=== PATIENT | male | born 1965 | race American Indian/Alaskan Native ===

== ENCOUNTER 2016-05-10 23:18 | Inpatient (IN) | payer OTHER ==
--- NOTE | 2016-05-10 23:53 | Emergency Department Report ---
ED General Adult HPI - General Chief complaint: Altered Mental Status Stated complaint: FALL/HEAD INJURY Time Seen by Provider: 05/10/16 23:50 Source: family (friends), RN notes reviewed Mode of arrival: Wheelchair Limitations: Altered Mental Status, Physical Limitation - History of Present Illness Initial comments: This is a 50-year-old male. He is previously unknown to me. Has a past medical history of alcohol abuse. Brought to the hospital by 2 friends. As per friends, patient is altered. He is not acting like his normal self and slurring speech. they do not know when patient was last seen normal. Patient has a known history of alcohol abuse. The patient's friends report that the patient was noted to be consuming alcohol today, there may have been trauma, he has bilateral periorbital ecchymoses. They report that the patient was able to walk with them before getting to the emergency room. -: Gradual Consistency: constant Improves with: none Worsens with: none Associated Symptoms: confusion - Related Data Previous Rx's Medication Instructions Recorded Last Taken Type Folic Acid [Folvite] 1 mg PO QDAY #30 tablet 05/14/16 Unknown Rx Thiamine [Vitamin B-1] 100 mg PO DAILY #30 tablet 05/14/16 Unknown Rx chlordiazePOXIDE [Librium] 5 mg PO Q12H PRN #6 capsule 05/14/16 Unknown Rx Allergies Allergy/AdvReac Type Severity Reaction Status Date / Time No Known Allergies Allergy Verified 05/11/16 02:53 ED Review of Systems ROS: Stated complaint: FALL/HEAD INJURY Other details as noted in HPI Comment: Unobtainable due to pts medical conditions Constitutional: see HPI ED Past Medical Hx - Past Medical History Previous Medical History?: No - Surgical History Past Surgical History?: No - Medications Home Medications: Home Medications Medication Instructions Recorded Confirmed Last Taken Type Folic Acid [Folvite] 1 mg PO QDAY #30 tablet 05/14/16 Unknown Rx Thiamine [Vitamin B-1] 100 mg PO DAILY #30 tablet 05/14/16 Unknown Rx chlordiazePOXIDE [Librium] 5 mg PO Q12H PRN #6 capsule 05/14/16 Unknown Rx ED Physical Exam - General Limitations: Altered Mental Status, Physical Limitation General appearance: obtunded - Head Head exam: Present: atraumatic, normocephalic - Eye Eye exam: Present: other (patient initially would not open eyes, however after a period of observation eyes were open spontaneously, and they would react to light bilaterally.). Absent: normal appearance (bilateral periorbital ecchymosis noted) - ENT ENT exam: Present: normal exam, normal orophraynx, mucous membranes moist - Neck Neck exam: Present: normal inspection, full ROM. Absent: tenderness, meningismus - Respiratory Respiratory exam: Present: normal lung sounds bilaterally. Absent: respiratory distress, wheezes, rales, rhonchi, stridor, decreased breath sounds - Cardiovascular Cardiovascular Exam: Present: normal rhythm, tachycardia, normal heart sounds. Absent: bradycardia, systolic murmur, diastolic murmur, rubs, gallop - GI/Abdominal GI/Abdominal exam: Present: soft, normal bowel sounds. Absent: distended, tenderness, guarding, rebound, pulsatile mass - Rectal Rectal exam: Present: normal inspection, normal rectal tone, heme (+) stool - exam: Present: normal inspection. Absent: testicular tenderness External exam: Present: normal external exam - Extremities Exam Extremities exam: Present: normal inspection, normal capillary refill. Absent: tenderness, pedal edema, joint swelling, calf tenderness - Back Exam Back exam: Present: normal inspection, paraspinal tenderness, vertebral tenderness. Absent: tenderness, CVA tenderness (R) - Neurological Exam Neurological exam: Present: altered, other (patient initially has a GCS of 3, after a period of observation, mental status improves, he is awake, follows some commands, eyes open spontaneously) - Psychiatric Psychiatric exam: Present: flat affect - Skin Skin exam: Present: warm, dry, intact, normal color, abrasion. Absent: rash ED Course Vital Signs 05/10/16 05/10/16 05/11/16 23:28 23:53 00:05 Temperature 98.8 F 98.2 F Pulse Rate 101 H 89 Respiratory 18 18 18 Rate Blood Pressure 130/89 Blood Pressure 129/87 [Right] O2 Sat by Pulse 99 97 97 Oximetry 05/11/16 05/11/16 05/11/16 00:42 02:30 04:39 Temperature 97.7 F Pulse Rate 100 H 98 H 98 H Respiratory 20 20 Rate Blood Pressure Blood Pressure 115/77 112/76 [Right] O2 Sat by Pulse 96 97 Oximetry - Reevaluation(s) Reevaluation #1: 05/11/16 01:30 Differential diagnosis: Intracranial injury, cervical spine injury, electrolyte derangement, toxic/metabolic encephalopathy, rhabdomyolysis Assessment and plan: 50-year-old male with altered mental status, most likely toxic/metabolic encephalopathy secondary to alcohol intoxication. CT scan of the cervical spine and brain are negative, patient noted to be moving 4 extremities, cervical collar discontinued. Noted to be in rhabdo, CK of 8600. Compartments are soft. Patient's mental status is improving. At this point in time, is protecting his airway, but we will have low threshold to intubate. Case is discussed with the hospital physician, Dr. Guillory, who accepts the patient to her service. ED Medical Decision Making - Lab Data Result diagrams: 05/12/16 05:44 05/12/16 05:44 Vital Signs 05/10/16 05/10/16 05/11/16 23:28 23:53 00:42 Temperature 98.8 F 98.2 F Pulse Rate 101 H 89 100 H Respiratory 18 18 20 Rate Blood Pressure 130/89 Blood Pressure 129/87 115/77 [Right] O2 Sat by Pulse 99 97 96 Oximetry Lab Results 05/10/16 05/10/16 05/10/16 Range/Units 23:56 23:56 23:56 WBC 2.4 L (4.5-11.0) K/mm3 RBC 4.01 (3.65-5.03) M/mm3 Hgb 13.0 (11.8-15.2) gm/dl Hct 39.0 (35.5-45.6) % MCV 97 H (84-94) fl MCH 32 (28-32) pg MCHC 33 (32-34) % RDW 13.2 (13.2-15.2) % Plt Count 95 L (140-440) K/mm3 Floyd % (Auto) Health Associate Add Manual Diff Complete Total Counted 100 Seg Neuts % (Manual) 62.0 (40.0-70.0) % Band Neutrophils % 0 % Lymphocytes % (Manual) 26.0 (13.4-35.0) % Reactive Lymphs % (Man) 0 % Monocytes % (Manual) 11.0 H (0.0-7.3) % Eosinophils % (Manual) 0 (0.0-4.3) % Basophils % (Manual) 0 (0.0-1.8) % Metamyelocytes % 1.0 % Myelocytes % 0 % Promyelocytes % 0 % Blast Cells % 0 % Nucleated RBC % Not Reportable Seg Neutrophils # Man 1.5 L (1.8-7.7) K/mm3 Band Neutrophils # 0.0 K/mm3 Lymphocytes # (Manual) 0.6 L (1.2-5.4) K/mm3 Abs React Lymphs (Man) 0.0 K/mm3 Monocytes # (Manual) 0.3 (0.0-0.8) K/mm3 Eosinophils # (Manual) 0.0 (0.0-0.4) K/mm3 Basophils # (Manual) 0.0 (0.0-0.1) K/mm3 Metamyelocytes # 0.0 K/mm3 Myelocytes # 0.0 K/mm3 Promyelocytes # 0.0 K/mm3 Blast Cells # 0.0 K/mm3 WBC Morphology Not Reportable Hypersegmented Neuts Not Reportable Hyposegmented Neuts Not Reportable Hypogranular Neuts Not Reportable Smudge Cells Not Reportable Toxic Granulation Not Reportable Toxic Vacuolation Not Reportable Dohle Bodies Not Reportable Pelger-Huet Anomaly Not Reportable Ruben Rods Not Reportable Platelet Estimate Consistent w auto Clumped Platelets Not Reportable Plt Clumps, EDTA Not Reportable Large Platelets Not Reportable Giant Platelets Not Reportable Platelet Satelliting Not Reportable Plt Morphology Comment Not Reportable RBC Morphology Not Reportable Dimorphic RBCs Not Reportable Polychromasia Not Reportable Hypochromasia Not Reportable Poikilocytosis Not Reportable Anisocytosis 1+ Microcytosis Not Reportable Macrocytosis Not Reportable Spherocytes Not Reportable Pappenheimer Bodies Not Reportable Sickle Cells Not Reportable Target Cells 2+ Tear Drop Cells Not Reportable Ovalocytes Not Reportable Helmet Cells Not Reportable [place] Bodies Not Reportable [place] Rings Not Reportable Uli Cells Not Reportable Bite Cells Not Reportable Crenated Cell Not Reportable Elliptocytes Not Reportable Acanthocytes (Spur) Not Reportable Rouleaux Not Reportable Hemoglobin C Crystals Not Reportable Schistocytes Not Reportable Malaria parasites Not Reportable John Bodies Not Reportable Hem Pathologist Commnt Sent to pathology Sodium 144 (137-145) mmol/L Potassium 4.1 (3.6-5.0) mmol/L Chloride 102.5 (98-107) mmol/L Carbon Dioxide 27 (22-30) mmol/L Anion Gap 19 mmol/L BUN 13 (9-20) mg/dL Creatinine 0.7 L (0.8-1.5) mg/dL Estimated GFR > 60 ml/min BUN/Creatinine Ratio 18.57 % Glucose 124 H (75-100) mg/dL Lactic Acid 2.3 H* (0.7-2.0) mmol/L Calcium 7.7 L (8.4-10.2) mg/dL Magnesium 1.9 (1.7-2.3) mg/dL Total Bilirubin 0.3 (0.1-1.2) mg/dL AST 330 H (5-40) units/L ALT 192 H (7-56) units/L Alkaline Phosphatase 92 (35-129) units/L Total Creatine Kinase (55-170) units/L Total Protein 6.4 (6.3-8.2) g/dL Albumin 3.6 L (3.9-5) g/dL Albumin/Globulin Ratio 1.3 % TSH (0.270-4.200) mlU/mL Urine Color (Yellow) Urine Turbidity (Clear) Urine pH (5.0-7.0) Ur Specific Melvin (1.003-1.030) Urine Protein (Negative) mg/dL Urine Glucose (UA) (Negative) mg/dL Urine Ketones (Negative) mg/dL Urine Blood (Negative) Urine Nitrite (Negative) Ur Reducing Substances Urine Bilirubin (Negative) Urine Ictotest Urine Urobilinogen (<2.0) mg/dL Ur Leukocyte Esterase (Negative) Urine WBC (Auto) (0.0-6.0) /HPF Urine RBC (Auto) (0.0-6.0) /HPF Hyaline Casts /LPF Urine Mucus /HPF Salicylates (2.8-20.0) mg/dL Urine Opiates Screen Urine Methadone Screen Acetaminophen (10.0-30.0) ug/mL Ur Barbiturates Screen Ur Phencyclidine Scrn Ur Amphetamines Screen U Benzodiazepines Scrn Urine Cocaine Screen U Marijuana (THC) Screen Drugs of Abuse Note Plasma/Serum Alcohol (0-0.07) gm% 05/10/16 05/10/16 05/10/16 Range/Units 23:56 23:56 23:56 WBC (4.5-11.0) K/mm3 RBC (3.65-5.03) M/mm3 Hgb (11.8-15.2) gm/dl Hct (35.5-45.6) % MCV (84-94) fl MCH (28-32) pg MCHC (32-34) % RDW (13.2-15.2) % Plt Count (140-440) K/mm3 Floyd % (Auto) Add Manual Diff Total Counted Seg Neuts % (Manual) (40.0-70.0) % Band Neutrophils % % Lymphocytes % (Manual) (13.4-35.0) % Reactive Lymphs % (Man) % Monocytes % (Manual) (0.0-7.3) % Eosinophils % (Manual) (0.0-4.3) % Basophils % (Manual) (0.0-1.8) % Metamyelocytes % % Myelocytes % % Promyelocytes % % Blast Cells % % Nucleated RBC % Seg Neutrophils # Man (1.8-7.7) K/mm3 Band Neutrophils # K/mm3 Lymphocytes # (Manual) (1.2-5.4) K/mm3 Abs React Lymphs (Man) K/mm3 Monocytes # (Manual) (0.0-0.8) K/mm3 Eosinophils # (Manual) (0.0-0.4) K/mm3 Basophils # (Manual) (0.0-0.1) K/mm3 Metamyelocytes # K/mm3 Myelocytes # K/mm3 Promyelocytes # K/mm3 Blast Cells # K/mm3 WBC Morphology Hypersegmented Neuts Hyposegmented Neuts Hypogranular Neuts Smudge Cells Toxic Granulation Toxic Vacuolation Dohle Bodies Pelger-Huet Anomaly Ruben Rods Platelet Estimate Clumped Platelets Plt Clumps, EDTA Large Platelets Giant Platelets Platelet Satelliting Plt Morphology Comment RBC Morphology Dimorphic RBCs Polychromasia Hypochromasia Poikilocytosis Anisocytosis Microcytosis Macrocytosis Spherocytes Pappenheimer Bodies Sickle Cells Target Cells Tear Drop Cells Ovalocytes Helmet Cells [place] Bodies [place] Rings Uli Cells Bite Cells Crenated Cell Elliptocytes Acanthocytes (Spur) Rouleaux Hemoglobin C Crystals Schistocytes Malaria parasites John Bodies Hem Pathologist Commnt Sodium (137-145) mmol/L Potassium (3.6-5.0) mmol/L Chloride (98-107) mmol/L Carbon Dioxide (22-30) mmol/L Anion Gap mmol/L BUN (9-20) mg/dL Creatinine (0.8-1.5) mg/dL Estimated GFR ml/min BUN/Creatinine Ratio % Glucose (75-100) mg/dL Lactic Acid (0.7-2.0) mmol/L Calcium (8.4-10.2) mg/dL Magnesium (1.7-2.3) mg/dL Total Bilirubin (0.1-1.2) mg/dL AST (5-40) units/L ALT (7-56) units/L Alkaline Phosphatase (35-129) units/L Total Creatine Kinase (55-170) units/L Total Protein (6.3-8.2) g/dL Albumin (3.9-5) g/dL Albumin/Globulin Ratio % TSH 1.380 (0.270-4.200) mlU/mL Urine Color (Yellow) Urine Turbidity (Clear) Urine pH (5.0-7.0) Ur Specific Melvin (1.003-1.030) Urine Protein (Negative) mg/dL Urine Glucose (UA) (Negative) mg/dL Urine Ketones (Negative) mg/dL Urine Blood (Negative) Urine Nitrite (Negative) Ur Reducing Substances Urine Bilirubin (Negative) Urine Ictotest Urine Urobilinogen (<2.0) mg/dL Ur Leukocyte Esterase (Negative) Urine WBC (Auto) (0.0-6.0) /HPF Urine RBC (Auto) (0.0-6.0) /HPF Hyaline Casts /LPF Urine Mucus /HPF Salicylates < 0.3 L (2.8-20.0) mg/dL Urine Opiates Screen Urine Methadone Screen Acetaminophen < 15.0 (10.0-30.0) ug/mL Ur Barbiturates Screen Ur Phencyclidine Scrn Ur Amphetamines Screen U Benzodiazepines Scrn Urine Cocaine Screen U Marijuana (THC) Screen Drugs of Abuse Note Plasma/Serum Alcohol (0-0.07) gm% 05/10/16 05/11/16 05/11/16 Range/Units 23:56 00:06 00:39 WBC (4.5-11.0) K/mm3 RBC (3.65-5.03) M/mm3 Hgb (11.8-15.2) gm/dl Hct (35.5-45.6) % MCV (84-94) fl MCH (28-32) pg MCHC (32-34) % RDW (13.2-15.2) % Plt Count (140-440) K/mm3 Floyd % (Auto) Add Manual Diff Total Counted Seg Neuts % (Manual) (40.0-70.0) % Band Neutrophils % % Lymphocytes % (Manual) (13.4-35.0) % Reactive Lymphs % (Man) % Monocytes % (Manual) (0.0-7.3) % Eosinophils % (Manual) (0.0-4.3) % Basophils % (Manual) (0.0-1.8) % Metamyelocytes % % Myelocytes % % Promyelocytes % % Blast Cells % % Nucleated RBC % Seg Neutrophils # Man (1.8-7.7) K/mm3 Band Neutrophils # K/mm3 Lymphocytes # (Manual) (1.2-5.4) K/mm3 Abs React Lymphs (Man) K/mm3 Monocytes # (Manual) (0.0-0.8) K/mm3 Eosinophils # (Manual) (0.0-0.4) K/mm3 Basophils # (Manual) (0.0-0.1) K/mm3 Metamyelocytes # K/mm3 Myelocytes # K/mm3 Promyelocytes # K/mm3 Blast Cells # K/mm3 WBC Morphology Hypersegmented Neuts Hyposegmented Neuts Hypogranular Neuts Smudge Cells Toxic Granulation Toxic Vacuolation Dohle Bodies Pelger-Huet Anomaly Ruben Rods Platelet Estimate Clumped Platelets Plt Clumps, EDTA Large Platelets Giant Platelets Platelet Satelliting Plt Morphology Comment RBC Morphology Dimorphic RBCs Polychromasia Hypochromasia Poikilocytosis Anisocytosis Microcytosis Macrocytosis Spherocytes Pappenheimer Bodies Sickle Cells Target Cells Tear Drop Cells Ovalocytes Helmet Cells [place] Bodies [place] Rings [place] Cells Bite Cells Crenated Cell Elliptocytes Acanthocytes (Spur) Rouleaux Hemoglobin C Crystals Schistocytes Malaria parasites John Bodies Hem Pathologist Commnt Sodium (137-145) mmol/L Potassium (3.6-5.0) mmol/L Chloride (98-107) mmol/L Carbon Dioxide (22-30) mmol/L Anion Gap mmol/L BUN (9-20) mg/dL Creatinine (0.8-1.5) mg/dL Estimated GFR ml/min BUN/Creatinine Ratio % Glucose (75-100) mg/dL Lactic Acid (0.7-2.0) mmol/L Calcium (8.4-10.2) mg/dL Magnesium (1.7-2.3) mg/dL Total Bilirubin (0.1-1.2) mg/dL AST (5-40) units/L ALT (7-56) units/L Alkaline Phosphatase (35-129) units/L Total Creatine Kinase 8612 H (55-170) units/L Total Protein (6.3-8.2) g/dL Albumin (3.9-5) g/dL Albumin/Globulin Ratio % TSH (0.270-4.200) mlU/mL Urine Color Yellow (Yellow) Urine Turbidity Clear (Clear) Urine pH 6.0 (5.0-7.0) Ur Specific Melvin 1.018 (1.003-1.030) Urine Protein 100 mg/dl (Negative) mg/dL Urine Glucose (UA) Neg (Negative) mg/dL Urine Ketones Neg (Negative) mg/dL Urine Blood Mod (Negative) Urine Nitrite Neg (Negative) Ur Reducing Substances Not Reportable Urine Bilirubin Neg (Negative) Urine Ictotest Not Reportable Urine Urobilinogen 4.0 (<2.0) mg/dL Ur Leukocyte Esterase Neg (Negative) Urine WBC (Auto) < 1.0 (0.0-6.0) /HPF Urine RBC (Auto) < 1.0 (0.0-6.0) /HPF Hyaline Casts 5 /LPF Urine Mucus Few /HPF Salicylates (2.8-20.0) mg/dL Urine Opiates Screen Urine Methadone Screen Acetaminophen (10.0-30.0) ug/mL Ur Barbiturates Screen Ur Phencyclidine Scrn Ur Amphetamines Screen U Benzodiazepines Scrn Urine Cocaine Screen U Marijuana (THC) Screen Drugs of Abuse Note Plasma/Serum Alcohol 0.64 H (0-0.07) gm% 05/11/16 Range/Units 00:39 WBC (4.5-11.0) K/mm3 RBC (3.65-5.03) M/mm3 Hgb (11.8-15.2) gm/dl Hct (35.5-45.6) % MCV (84-94) fl MCH (28-32) pg MCHC (32-34) % RDW (13.2-15.2) % Plt Count (140-440) K/mm3 Floyd % (Auto) Add Manual Diff Total Counted Seg Neuts % (Manual) (40.0-70.0) % Band Neutrophils % % Lymphocytes % (Manual) (13.4-35.0) % Reactive Lymphs % (Man) % Monocytes % (Manual) (0.0-7.3) % Eosinophils % (Manual) (0.0-4.3) % Basophils % (Manual) (0.0-1.8) % Metamyelocytes % % Myelocytes % % Promyelocytes % % Blast Cells % % Nucleated RBC % Seg Neutrophils # Man (1.8-7.7) K/mm3 Band Neutrophils # K/mm3 Lymphocytes # (Manual) (1.2-5.4) K/mm3 Abs React Lymphs (Man) K/mm3 Monocytes # (Manual) (0.0-0.8) K/mm3 Eosinophils # (Manual) (0.0-0.4) K/mm3 Basophils # (Manual) (0.0-0.1) K/mm3 Metamyelocytes # K/mm3 Myelocytes # K/mm3 Promyelocytes # K/mm3 Blast Cells # K/mm3 WBC Morphology Hypersegmented Neuts Hyposegmented Neuts Hypogranular Neuts Smudge Cells Toxic Granulation Toxic Vacuolation Dohle Bodies Pelger-Huet Anomaly Ruben Rods Platelet Estimate Clumped Platelets Plt Clumps, EDTA Large Platelets Giant Platelets Platelet Satelliting Plt Morphology Comment RBC Morphology Dimorphic RBCs Polychromasia Hypochromasia Poikilocytosis Anisocytosis Microcytosis Macrocytosis Spherocytes Pappenheimer Bodies Sickle Cells Target Cells Tear Drop Cells Ovalocytes Helmet Cells [place] Bodies [place] Rings [place] Cells Bite Cells Crenated Cell Elliptocytes Acanthocytes (Spur) Rouleaux Hemoglobin C Crystals Schistocytes Malaria parasites John Bodies Hem Pathologist Commnt Sodium (137-145) mmol/L Potassium (3.6-5.0) mmol/L Chloride (98-107) mmol/L Carbon Dioxide (22-30) mmol/L Anion Gap mmol/L BUN (9-20) mg/dL Creatinine (0.8-1.5) mg/dL Estimated GFR ml/min BUN/Creatinine Ratio % Glucose (75-100) mg/dL Lactic Acid (0.7-2.0) mmol/L Calcium (8.4-10.2) mg/dL Magnesium (1.7-2.3) mg/dL Total Bilirubin (0.1-1.2) mg/dL AST (5-40) units/L ALT (7-56) units/L Alkaline Phosphatase (35-129) units/L Total Creatine Kinase (55-170) units/L Total Protein (6.3-8.2) g/dL Albumin (3.9-5) g/dL Albumin/Globulin Ratio % TSH (0.270-4.200) mlU/mL Urine Color (Yellow) Urine Turbidity (Clear) Urine pH (5.0-7.0) Ur Specific Melvin (1.003-1.030) Urine Protein (Negative) mg/dL Urine Glucose (UA) (Negative) mg/dL Urine Ketones (Negative) mg/dL Urine Blood (Negative) Urine Nitrite (Negative) Ur Reducing Substances Urine Bilirubin (Negative) Urine Ictotest Urine Urobilinogen (<2.0) mg/dL Ur Leukocyte Esterase (Negative) Urine WBC (Auto) (0.0-6.0) /HPF Urine RBC (Auto) (0.0-6.0) /HPF Hyaline Casts /LPF Urine Mucus /HPF Salicylates (2.8-20.0) mg/dL Urine Opiates Screen Presumptive negative Urine Methadone Screen Presumptive negative Acetaminophen (10.0-30.0) ug/mL Ur Barbiturates Screen Presumptive negative Ur Phencyclidine Scrn Presumptive negative Ur Amphetamines Screen Presumptive negative U Benzodiazepines Scrn Presumptive negative Urine Cocaine Screen Presumptive negative U Marijuana (THC) Screen Presumptive negative Drugs of Abuse Note Disclamer Plasma/Serum Alcohol (0-0.07) gm% - EKG Data EKG shows normal: sinus rhythm, axis, intervals, QRS complexes, ST-T waves - EKG Data When compared to previous EKG there are: previous EKG unavailable - Radiology Data Radiology results: report reviewed, image reviewed xr chest and pelvis: negative ct scan of brain and c spine: negative Critical care attestation.: If time is entered above; I have spent that time in minutes in the direct care of this critically ill patient, excluding procedure time. ED Disposition Clinical Impression: Toxic encephalopathy, Rhabdomyolysis Disposition: OP ADMITTED IP TO THIS HOSP Is pt being admited?: Yes Does the pt Need Aspirin: No Condition: Fair
[2016-05-11 00:08] LABS: Mean Corpuscular HGB Conc 33 % (32-34); Mean Corpuscular Hemoglobin 32 pg (28-32); Mean Corpuscular Volume 97 fl (84-94); Red Blood Count 4.01 M/mm3 (3.65-5.03); Red Cell Distribution Width 13.2 % (13.2-15.2); White Blood Count 2.4 K/mm3 (4.5-11.0)
[2016-05-11 00:10] LABS: Platelet Count 95 K/mm3 (140-440)
[2016-05-11 00:29] LABS: Alanine Aminotransferase 192 units/L (7-56); Albumin 3.6 g/dL (3.9-5); Albumin/Globulin Ratio 1.3 %; Alkaline Phosphatase 92 units/L (35-129); Anion Gap 19 mmol/L; BUN/Creatinine Ratio 18.57; Bilirubin,Total 0.3 mg/dL (0.1-1.2); Blood Urea Nitrogen 13 mg/dL (9-20); Calcium 7.7 mg/dL (8.4-10.2); Carbon Dioxide 27 mmol/L (22-30); Chloride 102.5 mmol/L (98-107); Glucose 124 mg/dL (75-100); Magnesium 1.9 mg/dL (1.7-2.3); Potassium 4.1 mmol/L (3.6-5.0); Sodium 144 mmol/L (137-145); Total Protein 6.4 g/dL (6.3-8.2)
--- NOTE | 2016-05-11 00:39 | Cat Scan Report ---
FINAL REPORT EXAM: CT HEAD/BRAIN WO CON HISTORY: unresponsive FALL TECHNIQUE: Noncontrast serial axial images from skull base to vertex PRIORS: None. FINDINGS: There is moderate atrophy. There is no mass effect or midline shift. There are no abnormal intra or extra-axial fluid collections. Lateral ventricles are within normal limits for size and configuration. Basilar cisterns are patent. No acute intracranial hemorrhage is identified. Visualized paranasal sinuses and mastoid air cells are well aerated. No acute osseous abnormality is identified. IMPRESSION: 1. No acute intracranial hemorrhage is identified.
[2016-05-11 00:41] LABS: Urine Drugs of Abuse Note Disclamer
--- NOTE | 2016-05-11 00:41 | Cat Scan Report ---
FINAL REPORT EXAM: CT CERVICAL SPINE WO CON HISTORY: ams FALL TECHNIQUE: Noncontrast serial axial images through the cervical spine with coronal and sagittal reconstruction. PRIORS: None. FINDINGS: No gross abnormality is seen in the visualized portion of the brain. Mastoid air cells are well aerated. Prevertebral soft tissues appear within normal limits. Visualized portion of the lung apices are clear. No acute fracture or anterolisthesis is identified. Spondylosis is noted at C4-5, C5-6 and C6-7. IMPRESSION: 1. No acute fracture or anterolisthesis is identified. 2. Degenerative changes are noted.
[2016-05-11 00:45] LABS: Blastocytes % (Manual) 0 %
[2016-05-11 00:46] LABS: Basophils % (Manual) 0 % (0.0-1.8); Eosinophils % (Manual) 0 % (0.0-4.3)
[2016-05-11 00:47] LABS: Anisocytosis 1+
[2016-05-11 00:49] LABS: Platelet Estimate Consistent w Auto
[2016-05-11 00:50] LABS: Diff Status Complete
[2016-05-11 01:06] LABS: Bilirubin,Urine NEG (Negative); Blood,Urine MOD (Negative); Ketones,Urine NEG (Negative); Leukocyte Esterase,Urine NEG (Negative); Mucus,Urine FEW /HPF; Nitrite,Urine NEG (Negative); RBC,Urine < 1.0 /HPF (0.0-6.0); WBC,Urine < 1.0 /HPF (0.0-6.0)
[2016-05-11] MEDS ORDERED: NACL 0.9% 500 ML IV SCH (02:00)
[2016-05-11] MEDS ORDERED: TYLENOL PO PRN (02:43)
[2016-05-11] MEDS ORDERED: MILK OF MAGNESIA PO PRN (02:43)
[2016-05-11] MEDS ORDERED: ZOFRAN IV PRN (02:43)
[2016-05-11] MEDS ORDERED: DULCOLAX PR PRN (02:43)
--- NOTE | 2016-05-11 02:43 | History and Physical Report ---
History of Present Illness Date of examination: 05/11/16 History of present illness: 50-year-old man was brought to the emergency room by his friends were evaluation. Friends state that they called him, he sounded drunk, they went to check on him and found that he was not doing well. He had dark circles around his eyes and a bruise over the left eye. Patient is unable to give a history, he is confused Review of system is unobtainable PAST SURGICAL HISTORY: Unknown SOCIAL HISTORY: Drinks a lot, no tobacco or drugs FAMILY HISTORY: Unknown Medications and Allergies Allergies Allergy/AdvReac Type Severity Reaction Status Date / Time No Known Allergies Allergy Verified 05/11/16 02:53 Home Medications Medication Instructions Recorded Confirmed Last Taken Type Unobtainable 05/11/16 05/11/16 Unknown History Active Meds: Active Medications Sodium Chloride (Nacl 0.9% 500 Ml) 2,000 ml IV NOW BINDU Stop: 05/11/16 03:01 Last Admin: 05/11/16 01:59 Dose: 2,000 ml Exam - Physical Exam Narrative exam: Gen. appearance: Patient lying in bed, no apparent distress HEENT: Normocephalic, small bruise over the left eye, , pupils equally round and reactive to light, extraocular movement intact, and no sclericterus,. No JVD or thyromegaly or nodule,neck supple, no carotid bruit ,mucous membranes moist, no exudate or erythema Heart: S1, S2, regular rate and rhythm Lungs: Clear to auscultation bilaterally, breathing comfortable Abdomen: Positive bowel sounds, nontender, nondistended, no organomegaly Extremity: No edema, cyanosis, clubbing Skin: No rash, nodules, warm, dry Neuro: confused, oriented to self - Constitutional Vitals: Temp Pulse Resp BP Pulse Ox 98.2 F 100 H 20 115/77 96 05/10/16 23:53 05/11/16 00:42 05/11/16 00:42 05/11/16 00:42 05/11/16 00:42 Results - Labs CBC & Chem 7: 05/10/16 23:56 05/10/16 23:56 Labs: Abnormal lab results 05/10/16 05/10/16 05/10/16 Range/Units 23:56 23:56 23:56 WBC 2.4 L (4.5-11.0) K/mm3 MCV 97 H (84-94) fl Plt Count 95 L (140-440) K/mm3 Monocytes % (Manual) 11.0 H (0.0-7.3) % Seg Neutrophils # Man 1.5 L (1.8-7.7) K/mm3 Lymphocytes # (Manual) 0.6 L (1.2-5.4) K/mm3 Creatinine 0.7 L (0.8-1.5) mg/dL Glucose 124 H (75-100) mg/dL Lactic Acid 2.3 H* (0.7-2.0) mmol/L Calcium 7.7 L (8.4-10.2) mg/dL AST 330 H (5-40) units/L ALT 192 H (7-56) units/L Total Creatine Kinase (55-170) units/L Albumin 3.6 L (3.9-5) g/dL Salicylates (2.8-20.0) mg/dL Plasma/Serum Alcohol (0-0.07) gm% 05/10/16 05/10/16 05/11/16 Range/Units 23:56 23:56 00:06 WBC (4.5-11.0) K/mm3 MCV (84-94) fl Plt Count (140-440) K/mm3 Monocytes % (Manual) (0.0-7.3) % Seg Neutrophils # Man (1.8-7.7) K/mm3 Lymphocytes # (Manual) (1.2-5.4) K/mm3 Creatinine (0.8-1.5) mg/dL Glucose (75-100) mg/dL Lactic Acid (0.7-2.0) mmol/L Calcium (8.4-10.2) mg/dL AST (5-40) units/L ALT (7-56) units/L Total Creatine Kinase 8612 H (55-170) units/L Albumin (3.9-5) g/dL Salicylates < 0.3 L (2.8-20.0) mg/dL Plasma/Serum Alcohol 0.64 H (0-0.07) gm% - Imaging and Cardiology CT Scan - head: report reviewed Assessment and Plan C-spine CT negative Follow xray hip Toxic encephalopathy secondary to alcohol Rhabdomyolysis Alcohol intoxication Pancytopenia Admits medicine Start IV fluid, COPD protocol with IV Ativan Start thiamine, folic acid, DVT prophylaxis
--- NOTE | 2016-05-11 02:50 | Admit Criteria Form ---
Admission Criteria Documentation: MUSCULOSKELETAL DISEASE GRG Clinical Indications for Admission to Inpatient Care (Place 'X' for any and all applicable criteria): Hospital admission is needed for appropriate care of the patient because of ANY ONE of the following: [ ]I. Fracture, dislocation, or other musculoskeletal injury requiring inpatient care(medical) as indicated by ANY ONE of the following(4)(5)(6)(7) [ ]a) Vertebral fracture requiring observation for instability or neurologic compromise (8) [ ]b) Compartment syndrome (proven or cannot be ruled out during observation level of care) (9) [ ]c) Limb-threatening injury [ ]d) Major injury requiring inpatient stabilization such as traction initiation or external fixation before internal fixation or closure of complex or open fracture [ ]e) Major injury requiring inpatient treatment after emergency or observation level care (as appropriate) [ ]f) Severe pain requiring acute inpatient management [ ]II. Newly diagnosed or suspected bone, joint, or orthopedic device infection (e.g., osteomyelitis, septic arthritis) needing ANY ONE of the following(1)(2)(3) [ ]a) IV antibiotics that cannot be initiated in other than inpatient setting (e.g., patient too unstable or home infusion not available) [ ]b) Device removal or replacement [ ]c) Bone or soft tissue debridement [ ]d) Joint drainage (drain placement or repetitive aspirations) [ ]III. Severe rheumatologic disease (e.g., systemic lupus erythematosus, rheumatoid arthritis) with complications or comorbidities (Also use Optimal Recovery Care Criteria or General Recovery Criteria as appropriate on the basis of predominant condition), including ANY ONE of the following(10 )(11)(12)(13) [ ]a) Severe infection (e.g., RADIO INTELLIGENCE OPERATOR infection, sepsis) (14) [ ]b) Respiratory complications, including ANY ONE of the following: [ ]i) Pleural effusion with respiratory compromise [ ]ii) Pulmonary hypertension with congestive failure [ ]iii) Respiratory failure [ ]iv) Pulmonary hemorrhage (15) [ ]c) Hematologic disease, including ANY ONE of the following: [ ]i) Coagulopathy with bleeding [ ]ii) Thrombosis with hypercoagulable state [ ]iii) Thrombotic thrombocytopenic purpura [ ]d) Cerebritis with seizures, psychosis, or other severe abnormalities [ ]e) Vertebral destruction with monitoring needed for cervical myelopathy& possible respiratory compromise [ ]f) Exacerbation that requires inpatient treatment (e.g., intravenous immunosuppression) (16) [ ]g) Acute renal failure [ ]IV. Severe vasculitis with complications or comorbidities (Also use Optimal Recovery Care Criteria or General Recovery Criteria as appropriate on the basis of predominant condition), including ANY ONE of the following(11)(12)(17)(18)(19)(20) [ ]a) RADIO INTELLIGENCE OPERATOR vasculitis with seizures, psychosis, or other severe abnormalities (22) [ ]b) Renal failure (16) [ ]c) Pulmonary hemorrhage (15) [ ]d) Cerebral infarction [ ]e) Gastrointestinal ischemia [ ]f) Gangrene or threatened amputation [ ]g) Exacerbation that requires inpatient treatment (e.g., intravenous immunosuppression) (19)(21) [ ]V. Severe myopathy as indicated by ANY ONE of the following (28)(29) [ ]a) New onset of airway compromise or inability to swallow [ ]b) Respiratory deterioration with observation needed for impending respiratory failure [ ]c) Exacerbation that requires inpatient treatment (e.g., intravenous immunosuppression) [ ]. Severe gout (crystal arthropathy) as indicated by ANY ONE of the following (23)(24) [ ]a) Severe pain requiring acute inpatient management [ ]b) Exacerbation that requires inpatient treatment (e.g., intravenous treatment) [ X]VII.Rhabdomyolysis and ANY ONE of the following (25)(26)(27) [ ]a) Acute renal failure [ ]b) Need for intravenous hydration after emergency or observation level care (as appropriate) [ ]c) Inability to maintain oral hydration [ X]d) Change in mental status [ ]e) Electrolyte abnormality that remains after emergency or observation level care (as appropriate) [ ]VIII Post amputation complication, as indicated by ANY ONE of the following [ ]a) Infection [ ]b) Dehiscence [ ]c) Myodesis failure [ ]IX. Severe pain requiring acute inpatient management as indicated by ALL of the following (30)(31)(32) [ ]a) Continuous or frequent (e.g., every 2 to 4 hrs) parenteral analgesics required [A] [ ]b) Rapid improvement expected from treatment or acute intervention ( e.g., surgery, anesthesia procedure[B] [ ]X. Musculoskeletal Disease and ALL of the following: [ ]a) Symptom or finding for which emergency and observation care have failed or are not considered appropriate (Use General Criteria: Observation Care as appropriate) [ ]b) Presence of ANY ONE of the following [ ]i) A General Admission Criteria [ ]ii) A Pediatric General Admission Criteria The original [facility] content created by [facility] has been revised. The portions of the content which have been revised are identified through the use of italic text or in bold, and [facility] has neither reviewed nor approved the modified material. All other unmodified content is copyright [facility]. Please see references footnoted in the original [facility] edition 2016 Admission Criteria Met: Yes
[2016-05-11] MEDS ORDERED: NACL 0.9% 1000 ML 1,000 ML IV SCH (03:00)
[2016-05-11] MEDS: ATIVAN IV PRN ×4 (05:38→21:14)
--- NOTE | 2016-05-11 07:26 | XRay Report ---
AP PELVIS: History: Pain. AP view of the pelvis shows normal pelvic contour and soft tissues. The hips are symmetric and within normal limits as are the sacroiliac joints. IMPRESSION: Normal pelvis.
--- NOTE | 2016-05-11 07:26 | XRay Report ---
AP CHEST: HISTORY: Altered mental status AP view of the chest demonstrates a normal mediastinal and cardiac contour with clear lungs and normal bony and soft tissue structures. IMPRESSION: Unremarkable AP chest.
[2016-05-11] MEDS: FOLVITE PO SCH (12:37)
[2016-05-11] MEDS: VITAMIN B-1 PO SCH (12:37)
[2016-05-11] MEDS ORDERED: VITAMIN B1 IV SCH ×2 (18:00→20:30)
[2016-05-11] MEDS ORDERED: D5 IV SCH ×2 (18:00→20:30)
[2016-05-11] MEDS ORDERED: FOLVITE IV SCH ×2 (18:00→20:30)
[2016-05-11] MEDS ORDERED: KCL IV SCH ×2 (18:00→20:30)
[2016-05-11] MEDS ORDERED: [UNRECOGNIZED DRUG - OTHER] IV SCH (18:00)
[2016-05-11] MEDS ORDERED: [UNRECOGNIZED DRUG - OTHER] IV SCH (20:30)
[2016-05-12] MEDS: ATIVAN IV PRN ×6 (00:17→20:14)
[2016-05-12 07:26] LABS: Basophils % (Auto) 0.3 % (0.0-1.8); Eosinophils % (Auto) 0.1 % (0.0-4.3); Hematocrit 34.8 % (35.5-45.6); Hemoglobin 11.7 gm/dl (11.8-15.2); Mean Corpuscular HGB Conc 34 % (32-34); Mean Corpuscular Hemoglobin 33 pg (28-32); Mean Corpuscular Volume 97 fl (84-94); Red Cell Distribution Width 13.1 % (13.2-15.2); White Blood Count 4.5 K/mm3 (4.5-11.0)
[2016-05-12 07:32] LABS: Platelet Count 81 K/mm3 (140-440)
[2016-05-12 07:38] LABS: Anion Gap 17 mmol/L; Blood Urea Nitrogen 5 mg/dL (9-20); Calcium 8.3 mg/dL (8.4-10.2); Carbon Dioxide 27 mmol/L (22-30); Glucose 99 mg/dL (75-100); Potassium 4.1 mmol/L (3.6-5.0); Sodium 137 mmol/L (137-145)
--- NOTE | 2016-05-12 10:38 | Progress Note ---
Assessment and Plan Assessment and plan: 50-year-old man was brought to the emergency room by his friends due to alcohol intoxication and confusion: Toxic encephalopathy secondary to alcohol Rhabdomyolysis, monitor CPK Alcohol intoxication, now on withdrawal Pancytopenia, due to chronic alcohol abuse Plan: Cont IV fluid, CIWA protocol with IV Ativan Cont thiamine, folic acid, DVT prophylaxis History Interval history: Patient seen and examined. Medical records and medication list reviewed. No acute event overnight noted by the RN. Patient denies any chest pain or difficulty breathing. Patient is tolerating diet. Still has significant hand tremor Discussed plan of care at bedside with patient. Hospitalist Physical - Physical exam Narrative exam: GENERAL: Middle-aged male lying on bed appeared to be in no discomfort. HEENT: Normocephalic. Atraumatic. No conjunctival congestion or icterus. Patient has moist mucous membranes. NECK: Supple. Trachea midline. CHEST/LUNGS: Clear to auscultated bilaterally, breathing nonlabored. No wheezes crackles or rhonchi. HEART/CARDIOVASCULAR: Regular in rate and rhythm. S1 and S2 positive. ABDOMEN: Abdomen is soft, nontender. Patient has normal bowel sounds. SKIN: There is no rash. Warm and dry. NEURO: No focal motor deficit. Follows command. Positive asterixis bilaterally MUSCULOSKELETAL: No joint effusion or tenderness. EXTRIMITY: No edema, no cyanosis or clubbing. PSYCH: Cooperative. - Constitutional Vitals: Temp Pulse Resp BP Pulse Ox 97.6 F 86 18 128/85 98 05/12/16 07:55 05/12/16 07:55 05/12/16 07:55 05/12/16 07:55 05/12/16 07:55 Results - Labs CBC & Chem 7: 05/12/16 05:44 05/12/16 05:44 Labs: Laboratory Last Values WBC 4.5 K/mm3 (4.5-11.0) 05/12/16 05:44 RBC 3.60 M/mm3 (3.65-5.03) L 05/12/16 05:44 Hgb 11.7 gm/dl (11.8-15.2) L 05/12/16 05:44 Hct 34.8 % (35.5-45.6) L 05/12/16 05:44 MCV 97 fl (84-94) H 05/12/16 05:44 MCH 33 pg (28-32) H 05/12/16 05:44 MCHC 34 % (32-34) 05/12/16 05:44 RDW 13.1 % (13.2-15.2) L 05/12/16 05:44 Plt Count 81 K/mm3 (140-440) L 05/12/16 05:44 Lymph % (Auto) 10.1 % (13.4-35.0) L 05/12/16 05:44 Russell % (Auto) 9.0 % (0.0-7.3) H 05/12/16 05:44 Eos % (Auto) 0.1 % (0.0-4.3) 05/12/16 05:44 Baso % (Auto) 0.3 % (0.0-1.8) 05/12/16 05:44 Lymph # 0.5 K/mm3 (1.2-5.4) L 05/12/16 05:44 Russell # 0.4 K/mm3 (0.0-0.8) 05/12/16 05:44 Eos # 0.0 K/mm3 (0.0-0.4) 05/12/16 05:44 Baso # 0.0 K/mm3 (0.0-0.1) 05/12/16 05:44 Add Manual Diff Complete 05/10/16 23:56 Total Counted 100 05/10/16 23:56 Seg Neutrophils % 80.5 % (40.0-70.0) H 05/12/16 05:44 Seg Neuts % (Manual) 62.0 % (40.0-70.0) 05/10/16 23:56 Band Neutrophils % 0 % 05/10/16 23:56 Lymphocytes % (Manual) 26.0 % (13.4-35.0) 05/10/16 23:56 Reactive Lymphs % (Man) 0 % 05/10/16 23:56 Monocytes % (Manual) 11.0 % (0.0-7.3) H 05/10/16 23:56 Eosinophils % (Manual) 0 % (0.0-4.3) 05/10/16 23:56 Basophils % (Manual) 0 % (0.0-1.8) 05/10/16 23:56 Metamyelocytes % 1.0 % 05/10/16 23:56 Myelocytes % 0 % 05/10/16 23:56 Promyelocytes % 0 % 05/10/16 23:56 Blast Cells % 0 % 05/10/16 23:56 Nucleated RBC % Not Reportable 05/10/16 23:56 Seg Neutrophils # 3.6 K/mm3 (1.8-7.7) 05/12/16 05:44 Seg Neutrophils # Man 1.5 K/mm3 (1.8-7.7) L 05/10/16 23:56 Band Neutrophils # 0.0 K/mm3 05/10/16 23:56 Lymphocytes # (Manual) 0.6 K/mm3 (1.2-5.4) L 05/10/16 23:56 Abs React Lymphs (Man) 0.0 K/mm3 05/10/16 23:56 Monocytes # (Manual) 0.3 K/mm3 (0.0-0.8) 05/10/16 23:56 Eosinophils # (Manual) 0.0 K/mm3 (0.0-0.4) 05/10/16 23:56 Basophils # (Manual) 0.0 K/mm3 (0.0-0.1) 05/10/16 23:56 Metamyelocytes # 0.0 K/mm3 05/10/16 23:56 Myelocytes # 0.0 K/mm3 05/10/16 23:56 Promyelocytes # 0.0 K/mm3 05/10/16 23:56 Blast Cells # 0.0 K/mm3 05/10/16 23:56 Pathologist Review 05/10/16 23:56 WBC Morphology Not Reportable 05/10/16 23:56 Hypersegmented Neuts Not Reportable 05/10/16 23:56 Hyposegmented Neuts Not Reportable 05/10/16 23:56 Hypogranular Neuts Not Reportable 05/10/16 23:56 Smudge Cells Not Reportable 05/10/16 23:56 Toxic Granulation Not Reportable 05/10/16 23:56 Toxic Vacuolation Not Reportable 05/10/16 23:56 Dohle Bodies Not Reportable 05/10/16 23:56 Pelger-Huet Anomaly Not Reportable 05/10/16 23:56 Ruben Rods Not Reportable 05/10/16 23:56 Platelet Estimate Consistent w auto 05/10/16 23:56 Clumped Platelets Not Reportable 05/10/16 23:56 Plt Clumps, EDTA Not Reportable 05/10/16 23:56 Large Platelets Not Reportable 05/10/16 23:56 Giant Platelets Not Reportable 05/10/16 23:56 Platelet Satelliting Not Reportable 05/10/16 23:56 Plt Morphology Comment Not Reportable 05/10/16 23:56 RBC Morphology Not Reportable 05/10/16 23:56 Dimorphic RBCs Not Reportable 05/10/16 23:56 Polychromasia Not Reportable 05/10/16 23:56 Hypochromasia Not Reportable 05/10/16 23:56 Poikilocytosis Not Reportable 05/10/16 23:56 Anisocytosis 1+ 05/10/16 23:56 Microcytosis Not Reportable 05/10/16 23:56 Macrocytosis Not Reportable 05/10/16 23:56 Spherocytes Not Reportable 05/10/16 23:56 Pappenheimer Bodies Not Reportable 05/10/16 23:56 Sickle Cells Not Reportable 05/10/16 23:56 Target Cells Caustic Operator 05/10/16 23:56 Tear Drop Cells Not Reportable 05/10/16 23:56 Ovalocytes Not Reportable 05/10/16 23:56 Helmet Cells Not Reportable 05/10/16 23:56 Burrows-[place] Bodies Not Reportable 05/10/16 23:56 [place] Rings Not Reportable 05/10/16 23:56 Aspen Cells Not Reportable 05/10/16 23:56 Bite Cells Not Reportable 05/10/16 23:56 Crenated Cell Not Reportable 05/10/16 23:56 Elliptocytes Not Reportable 05/10/16 23:56 Acanthocytes (Spur) Not Reportable 05/10/16 23:56 Rouleaux Not Reportable 05/10/16 23:56 Hemoglobin C Crystals Not Reportable 05/10/16 23:56 Schistocytes Not Reportable 05/10/16 23:56 Malaria parasites Not Reportable 05/10/16 23:56 John Bodies Not Reportable 05/10/16 23:56 Hem Pathologist Commnt Sent to pathology 05/10/16 23:56 Sodium 137 mmol/L (137-145) 05/12/16 05:44 Potassium 4.1 mmol/L (3.6-5.0) 05/12/16 05:44 Chloride 97.0 mmol/L (98-107) L 05/12/16 05:44 Carbon Dioxide 27 mmol/L (22-30) 05/12/16 05:44 Anion Gap 17 mmol/L 05/12/16 05:44 BUN 5 mg/dL (9-20) L 05/12/16 05:44 Creatinine 0.5 mg/dL (0.8-1.5) L 05/12/16 05:44 Estimated GFR > 60 ml/min 05/12/16 05:44 BUN/Creatinine Ratio 10.00 % 05/12/16 05:44 Glucose 99 mg/dL (75-100) 05/12/16 05:44 POC Glucose 120 (70-105) H 05/10/16 23:56 Lactic Acid 1.6 mmol/L (0.7-2.0) 05/11/16 02:44 Calcium 8.3 mg/dL (8.4-10.2) L 05/12/16 05:44 Magnesium 1.9 mg/dL (1.7-2.3) 05/10/16 23:56 Total Bilirubin 0.3 mg/dL (0.1-1.2) 05/10/16 23:56 AST 330 units/L (5-40) H 05/10/16 23:56 ALT 192 units/L (7-56) H 05/10/16 23:56 Alkaline Phosphatase 92 units/L (35-129) 05/10/16 23:56 Total Creatine Kinase 8612 units/L (55-170) H 05/11/16 00:06 Total Protein 6.4 g/dL (6.3-8.2) 05/10/16 23:56 Albumin 3.6 g/dL (3.9-5) L 05/10/16 23:56 Albumin/Globulin Ratio 1.3 % 05/10/16 23:56 TSH 1.380 mlU/mL (0.270-4.200) 05/10/16 23:56 Urine Color Yellow (Yellow) 05/11/16 00:39 Urine Turbidity Clear (Clear) 05/11/16 00:39 Urine pH 6.0 (5.0-7.0) 05/11/16 00:39 Ur Specific Malcolm 1.018 (1.003-1.030) 05/11/16 00:39 Urine Protein 100 mg/dl mg/dL (Negative) 05/11/16 00:39 Urine Glucose (UA) Neg mg/dL (Negative) 05/11/16 00:39 Urine Ketones Neg mg/dL (Negative) 05/11/16 00:39 Urine Blood Mod (Negative) 05/11/16 00:39 Urine Nitrite Neg (Negative) 05/11/16 00:39 Ur Reducing Substances Not Reportable 05/11/16 00:39 Urine Bilirubin Neg (Negative) 05/11/16 00:39 Urine Ictotest Not Reportable 05/11/16 00:39 Urine Urobilinogen 4.0 mg/dL (<2.0) 03 00:39 Ur Leukocyte Esterase Neg (Negative) 05/11/16 00:39 Urine WBC (Auto) < 1.0 /HPF (0.0-6.0) 05/11/16 00:39 Urine RBC (Auto) < 1.0 /HPF (0.0-6.0) 05/11/16 00:39 Hyaline Casts 5 /LPF 05/11/16 00:39 Urine Mucus Few /HPF 05/11/16 00:39 Salicylates < 0.3 mg/dL (2.8-20.0) L 05/10/16 23:56 Urine Opiates Screen Presumptive negative 05/11/16 00:39 Urine Methadone Screen Presumptive negative 05/11/16 00:39 Acetaminophen < 15.0 ug/mL (10.0-30.0) 05/10/16 23:56 Ur Barbiturates Screen Presumptive negative 05/11/16 00:39 Ur Phencyclidine Scrn Presumptive negative 05/11/16 00:39 Ur Amphetamines Screen Presumptive negative 05/11/16 00:39 U Benzodiazepines Scrn Presumptive negative 05/11/16 00:39 Urine Cocaine Screen Presumptive negative 05/11/16 00:39 U Marijuana (THC) Screen Presumptive negative 05/11/16 00:39 Drugs of Abuse Note Disclamer 05/11/16 00:39 Plasma/Serum Alcohol 0.64 gm% (0-0.07) H 05/10/16 23:56
[2016-05-12] MEDS: FOLVITE PO SCH (11:24)
[2016-05-12] MEDS: VITAMIN B-1 PO SCH (11:25)
[2016-05-13] MEDS: ATIVAN IV PRN (00:35)
[2016-05-13] MEDS: VITAMIN B-1 PO SCH (10:01)
[2016-05-13] MEDS: FOLVITE PO SCH (10:01)
[2016-05-13] MEDS ORDERED: LIBRIUM PO PRN (15:30)
[2016-05-13] MEDS ORDERED: ATIVAN IV PRN (15:30)
--- NOTE | 2016-05-13 15:32 | Progress Note ---
Assessment and Plan Assessment and plan: 50-year-old man was brought to the emergency room by his friends due to alcohol intoxication and confusion: Toxic encephalopathy secondary to alcohol Rhabdomyolysis, monitor CPK Alcohol intoxication, now on withdrawal Pancytopenia, due to chronic alcohol abuse Plan: Cont IV fluid, prn IV ativan, add librium d/c restrain, PT eval Cont thiamine, folic acid, DVT prophylaxis History Interval history: Patient seen and examined. Medical records and medication list reviewed. No acute event overnight noted by the RN. Patient denies any chest pain or difficulty breathing. Patient is tolerating diet. Still has significant hand tremor, but better than yesterday Discussed plan of care at bedside with patient, he is on restrain. Hospitalist Physical - Physical exam Narrative exam: GENERAL: Middle-aged male lying on bed appeared to be in no discomfort. HEENT: Normocephalic. Atraumatic. No conjunctival congestion or icterus. Patient has moist mucous membranes. NECK: Supple. Trachea midline. CHEST/LUNGS: Clear to auscultated bilaterally, breathing nonlabored. No wheezes crackles or rhonchi. HEART/CARDIOVASCULAR: Regular in rate and rhythm. S1 and S2 positive. ABDOMEN: Abdomen is soft, nontender. Patient has normal bowel sounds. SKIN: There is no rash. Warm and dry. NEURO: No focal motor deficit. Follows command. Positive asterixis bilaterally MUSCULOSKELETAL: No joint effusion or tenderness. EXTRIMITY: No edema, no cyanosis or clubbing. PSYCH: Cooperative. - Constitutional Vitals: Temp Pulse Resp BP Pulse Ox 98.2 F 86 16 134/94 98 05/13/16 11:30 05/13/16 11:30 05/13/16 11:30 05/13/16 11:30 05/13/16 11:30 Results - Labs CBC & Chem 7: 05/12/16 05:44 05/12/16 05:44 Labs: Laboratory Last Values WBC 4.5 K/mm3 (4.5-11.0) 05/12/16 05:44 RBC 3.60 M/mm3 (3.65-5.03) L 05/12/16 05:44 Hgb 11.7 gm/dl (11.8-15.2) L 05/12/16 05:44 Hct 34.8 % (35.5-45.6) L 05/12/16 05:44 MCV 97 fl (84-94) H 05/12/16 05:44 MCH 33 pg (28-32) H 05/12/16 05:44 MCHC 34 % (32-34) 05/12/16 05:44 RDW 13.1 % (13.2-15.2) L 05/12/16 05:44 Plt Count 81 K/mm3 (140-440) L 05/12/16 05:44 Lymph % (Auto) 10.1 % (13.4-35.0) L 05/12/16 05:44 Brule % (Auto) 9.0 % (0.0-7.3) H 05/12/16 05:44 Eos % (Auto) 0.1 % (0.0-4.3) 05/12/16 05:44 Baso % (Auto) 0.3 % (0.0-1.8) 05/12/16 05:44 Lymph # 0.5 K/mm3 (1.2-5.4) L 05/12/16 05:44 Brule # 0.4 K/mm3 (0.0-0.8) 05/12/16 05:44 Eos # 0.0 K/mm3 (0.0-0.4) 05/12/16 05:44 Baso # 0.0 K/mm3 (0.0-0.1) 05/12/16 05:44 Add Manual Diff Complete 05/10/16 23:56 Total Counted 100 05/10/16 23:56 Seg Neutrophils % 80.5 % (40.0-70.0) H 05/12/16 05:44 Seg Neuts % (Manual) 62.0 % (40.0-70.0) 05/10/16 23:56 Band Neutrophils % 0 % 05/10/16 23:56 Lymphocytes % (Manual) 26.0 % (13.4-35.0) 05/10/16 23:56 Reactive Lymphs % (Man) 0 % 05/10/16 23:56 Monocytes % (Manual) 11.0 % (0.0-7.3) H 05/10/16 23:56 Eosinophils % (Manual) 0 % (0.0-4.3) 05/10/16 23:56 Basophils % (Manual) 0 % (0.0-1.8) 05/10/16 23:56 Metamyelocytes % 1.0 % 05/10/16 23:56 Myelocytes % 0 % 05/10/16 23:56 Promyelocytes % 0 % 05/10/16 23:56 Blast Cells % 0 % 05/10/16 23:56 Nucleated RBC % Not Reportable 05/10/16 23:56 Seg Neutrophils # 3.6 K/mm3 (1.8-7.7) 05/12/16 05:44 Seg Neutrophils # Man 1.5 K/mm3 (1.8-7.7) L 05/10/16 23:56 Band Neutrophils # 0.0 K/mm3 05/10/16 23:56 Lymphocytes # (Manual) 0.6 K/mm3 (1.2-5.4) L 05/10/16 23:56 Abs React Lymphs (Man) 0.0 K/mm3 05/10/16 23:56 Monocytes # (Manual) 0.3 K/mm3 (0.0-0.8) 05/10/16 23:56 Eosinophils # (Manual) 0.0 K/mm3 (0.0-0.4) 05/10/16 23:56 Basophils # (Manual) 0.0 K/mm3 (0.0-0.1) 05/10/16 23:56 Metamyelocytes # 0.0 K/mm3 05/10/16 23:56 Myelocytes # 0.0 K/mm3 05/10/16 23:56 Promyelocytes # 0.0 K/mm3 05/10/16 23:56 Blast Cells # 0.0 K/mm3 05/10/16 23:56 Pathologist Review 05/10/16 23:56 WBC Morphology Not Reportable 05/10/16 23:56 Hypersegmented Neuts Not Reportable 05/10/16 23:56 Hyposegmented Neuts Not Reportable 05/10/16 23:56 Hypogranular Neuts Not Reportable 05/10/16 23:56 Smudge Cells Not Reportable 05/10/16 23:56 Toxic Granulation Not Reportable 05/10/16 23:56 Toxic Vacuolation Not Reportable 05/10/16 23:56 Dohle Bodies Not Reportable 05/10/16 23:56 Pelger-Huet Anomaly Not Reportable 05/10/16 23:56 Ruben Rods Not Reportable 05/10/16 23:56 Platelet Estimate Consistent w auto 05/10/16 23:56 Clumped Platelets Not Reportable 05/10/16 23:56 Plt Clumps, EDTA Not Reportable 05/10/16 23:56 Large Platelets Not Reportable 05/10/16 23:56 Giant Platelets Not Reportable 05/10/16 23:56 Platelet Satelliting Not Reportable 05/10/16 23:56 Plt Morphology Comment Not Reportable 05/10/16 23:56 RBC Morphology Not Reportable 05/10/16 23:56 Dimorphic RBCs Not Reportable 05/10/16 23:56 Polychromasia Not Reportable 05/10/16 23:56 Hypochromasia Not Reportable 05/10/16 23:56 Poikilocytosis Not Reportable 05/10/16 23:56 Anisocytosis 1+ 05/10/16 23:56 Microcytosis Not Reportable 05/10/16 23:56 Macrocytosis Not Reportable 05/10/16 23:56 Spherocytes Not Reportable 05/10/16 23:56 Pappenheimer Bodies Not Reportable 05/10/16 23:56 Sickle Cells Not Reportable 05/10/16 23:56 Target Cells Thermodynamics Teacher 05/10/16 23:56 Tear Drop Cells Not Reportable 05/10/16 23:56 Ovalocytes Not Reportable 05/10/16 23:56 Helmet Cells Not Reportable 05/10/16 23:56 Burrows-[place] Bodies Not Reportable 05/10/16 23:56 [place] Rings Not Reportable 05/10/16 23:56 Uli Cells Not Reportable 05/10/16 23:56 Bite Cells Not Reportable 05/10/16 23:56 Crenated Cell Not Reportable 05/10/16 23:56 Elliptocytes Not Reportable 05/10/16 23:56 Acanthocytes (Spur) Not Reportable 05/10/16 23:56 Rouleaux Not Reportable 05/10/16 23:56 Hemoglobin C Crystals Not Reportable 05/10/16 23:56 Schistocytes Not Reportable 05/10/16 23:56 Malaria parasites Not Reportable 05/10/16 23:56 John Bodies Not Reportable 05/10/16 23:56 Hem Pathologist Commnt Sent to pathology 05/10/16 23:56 Sodium 137 mmol/L (137-145) 05/12/16 05:44 Potassium 4.1 mmol/L (3.6-5.0) 05/12/16 05:44 Chloride 97.0 mmol/L (98-107) L 05/12/16 05:44 Carbon Dioxide 27 mmol/L (22-30) 05/12/16 05:44 Anion Gap 17 mmol/L 05/12/16 05:44 BUN 5 mg/dL (9-20) L 05/12/16 05:44 Creatinine 0.5 mg/dL (0.8-1.5) L 05/12/16 05:44 Estimated GFR > 60 ml/min 05/12/16 05:44 BUN/Creatinine Ratio 10.00 % 05/12/16 05:44 Glucose 99 mg/dL (75-100) 05/12/16 05:44 POC Glucose 99 (70-105) 05/13/16 13:03 Lactic Acid 1.6 mmol/L (0.7-2.0) 05/11/16 02:44 Calcium 8.3 mg/dL (8.4-10.2) L 05/12/16 05:44 Magnesium 1.9 mg/dL (1.7-2.3) 05/10/16 23:56 Total Bilirubin 0.3 mg/dL (0.1-1.2) 05/10/16 23:56 AST 330 units/L (5-40) H 05/10/16 23:56 ALT 192 units/L (7-56) H 05/10/16 23:56 Alkaline Phosphatase 92 units/L (35-129) 05/10/16 23:56 Total Creatine Kinase 4163 units/L (55-170) H 05/12/16 18:11 Total Protein 6.4 g/dL (6.3-8.2) 05/10/16 23:56 Albumin 3.6 g/dL (3.9-5) L 05/10/16 23:56 Albumin/Globulin Ratio 1.3 % 05/10/16 23:56 Vitamin B12 639.0 pg/mL (211-911) 05/12/16 12:59 TSH 1.380 mlU/mL (0.270-4.200) 05/10/16 23:56 Urine Color Yellow (Yellow) 05/11/16 00:39 Urine Turbidity Clear (Clear) 05/11/16 00:39 Urine pH 6.0 (5.0-7.0) 05/11/16 00:39 Ur Specific [place] 1.018 (1.003-1.030) 05/11/16 00:39 Urine Protein 100 mg/dl mg/dL (Negative) 05/11/16 00:39 Urine Glucose (UA) Neg mg/dL (Negative) 05/11/16 00:39 Urine Ketones Neg mg/dL (Negative) 05/11/16 00:39 Urine Blood Mod (Negative) 05/11/16 00:39 Urine Nitrite Neg (Negative) 05/11/16 00:39 Ur Reducing Substances Not Reportable 05/11/16 00:39 Urine Bilirubin Neg (Negative) 05/11/16 00:39 Urine Ictotest Not Reportable 05/11/16 00:39 Urine Urobilinogen 4.0 mg/dL (<2.0) 05/11/16 00:39 Ur Leukocyte Esterase Neg (Negative) 05/11/16 00:39 Urine WBC (Auto) < 1.0 /HPF (0.0-6.0) 05/11/16 00:39 Urine RBC (Auto) < 1.0 /HPF (0.0-6.0) 05/11/16 00:39 Hyaline Casts 5 /LPF 05/11/16 00:39 Urine Mucus Few /HPF 05/11/16 00:39 Salicylates < 0.3 mg/dL (2.8-20.0) L 05/10/16 23:56 Urine Opiates Screen Presumptive negative 05/11/16 00:39 Urine Methadone Screen Presumptive negative 05/11/16 00:39 Acetaminophen < 15.0 ug/mL (10.0-30.0) 05/10/16 23:56 Ur Barbiturates Screen Presumptive negative 05/11/16 00:39 Ur Phencyclidine Scrn Presumptive negative 05/11/16 00:39 Ur Amphetamines Screen Presumptive negative 05/11/16 00:39 U Benzodiazepines Scrn Presumptive negative 05/11/16 00:39 Urine Cocaine Screen Presumptive negative 05/11/16 00:39 U Marijuana (THC) Screen Presumptive negative 05/11/16 00:39 Drugs of Abuse Note Disclamer 05/11/16 00:39 Plasma/Serum Alcohol 0.64 gm% (0-0.07) H 05/10/16 23:56
[2016-05-13] MEDS: NACL 0.45% 1000 ML 1,000 ML IV SCH (17:39)
[2016-05-13] MEDS ORDERED: LOVENOX SUB-Q SCH (22:00)
[2016-05-14] MEDS: NACL 0.45% 1000 ML 1,000 ML IV SCH (05:38)
--- NOTE | 2016-05-14 10:36 | Discharge Summary ---
Providers - Providers Date of Admission: 05/11/16 02:43 Date of discharge: 05/14/16 Attending physician: THOMPSON ALICIA 05/13/16 15:28 Physical Therapy Evaluation and Treat [CONS] Routine Comment: Reason For Exam: functional mobility Primary care physician: MARIUSZ PISANO MD Hospitalization Condition: Fair Hospital course: 50-year-old man was brought to the emergency room by his friends due to alcohol intoxication and confusion. He was placed on alcohol withdrawal protocol and monitored clinically. He required restraints but then eventually he was following instruction, tolerating diet and was supple to ambulate. He was also appeared to be alert and oriented to time place and person. Discharge plan and management as tolerated discuss with the patient and his family. He was discharged home in stable condition. Discharge diagnosis: Toxic encephalopathy secondary to alcohol Rhabdomyolysis, CPK and it down Alcohol intoxication, maintained on withdrawal protocol Pancytopenia, due to chronic alcohol abuse, stable Disposition: DISCHARGED TO HOME OR SELFCARE Time spent for discharge: 32 minutes Core Measure Documentation - Palliative Care Palliative Care/ Comfort Measures: Not Applicable - Core Measures Any of the following diagnoses?: none Exam - Physical Exam Narrative exam: GENERAL: Middle-aged male lying on bed appeared to be in no discomfort. HEENT: Normocephalic. Atraumatic. No conjunctival congestion or icterus. Patient has moist mucous membranes. NECK: Supple. Trachea midline. CHEST/LUNGS: Clear to auscultated bilaterally, breathing nonlabored. No wheezes crackles or rhonchi. HEART/CARDIOVASCULAR: Regular in rate and rhythm. S1 and S2 positive. ABDOMEN: Abdomen is soft, nontender. Patient has normal bowel sounds. SKIN: There is no rash. Warm and dry. NEURO: No focal motor deficit. Follows command. MUSCULOSKELETAL: No joint effusion or tenderness. EXTRIMITY: No edema, no cyanosis or clubbing. PSYCH: Cooperative. - Constitutional Vitals: Temp Pulse Resp BP Pulse Ox 98.3 F 74 20 115/77 100 05/14/16 08:00 05/14/16 08:00 05/14/16 08:00 05/14/16 08:00 05/14/16 08:00 Plan Activity: advance as tolerated Weight Bearing Status: Weight Bear as Tolerated Diet: regular Follow up with: PRIMARY CARE, [Primary Care Provider] - 3-5 Days Prescriptions: chlordiazePOXIDE [Librium] 5 mg PO Q12H PRN #6 capsule PRN Reason: Anxiety Folic Acid [Folvite] 1 mg PO QDAY #30 tablet Thiamine [Vitamin B-1] 100 mg PO DAILY #30 tablet
[2016-05-14] MEDS: FOLVITE PO SCH (11:36)
[2016-05-14] MEDS: VITAMIN B-1 PO SCH (11:36)
[2016-05-14 17:25] VITALS: BP 121/90
== END 2016-05-14 18:44 | disposition home or self-care (01) | DRG 896 ==
LOC: ED 23:18 → 4A 05-11 02:43
PROVIDERS: ADMIT Internal Medicine; ATTEND Internal Medicine
DX: F10.239 Alcohol dependence with withdrawal, unspecified (principal); G92 Toxic encephalopathy; M62.82 Rhabdomyolysis; D61.818 Other pancytopenia; F10.229 Alcohol dependence with intoxication, unspecified
CPT/HCPCS: 36415; 51701; 70450; 71010; 72125; 72170; 80048; 80053; 80307; 80320; 81001; 82140; 82550; 82607; 82747; 82962; 83735; 84443; 85007; 85025; 93005; 93010; 96360; 96361; G0480; J1650; J2060; J3411; J3480; J7030; J7040